=== PATIENT | male | born 1985 | race Caucasian/White ===

== ENCOUNTER 2021-09-09 17:52 | Observation (INO) | payer SELFPAY ==
[~2021-09-09] VITALS: Ht 177.8 cm; Wt 91.0 kg
[2021-09-09] VITALS (15 sets, daily range): BP systolic 124–181; BP diastolic 81–115
--- NOTE | 2021-09-09 18:06 | NUR ---
PT TO ROOM FOR TRIAGE
--- NOTE | 2021-09-09 19:00 | NUR ---
REPORT RECEIVED FROM ZAKIYA MICHAEL, CARE ASSUMED.
[2021-09-09 19:41] LABS: HEMATOCRIT 48.2 % (39.0-50.0); HEMOGLOBIN 16.1 g/dl (14.0-18.0); IMMATURE GRANULOCYTES 0.1 % (0.0-5.0); MEAN CELL VOLUME 92.9 fL CALC (80.0-100.0); MEAN CORPUSCULAR HGB CONC 33.4 g/dL CAL (32.0-36.0); NEUT# 5.13 thou/uL (1.82-7.42); RED BLOOD COUNT 5.19 mill/uL (4.70-6.10); RED CELL DISTRI WIDTH 12.2 % (11.5-15.5)
[2021-09-09 19:42] LABS: URINE BILIRUBIN - DIPSTICK NEGATIVE (NEGATIVE); URINE BLOOD DIPSTICK NEGATIVE (NEGATIVE); URINE COLOR YELLOW; URINE GLUCOSE - DIPSTICK NEGATIVE (NEGATIVE); URINE KETONE NEGATIVE (NEGATIVE); URINE LEUK ESTERASE NEGATIVE (NEGATIVE); URINE PROTEIN - DIPSTICK NEGATIVE (NEG-TRACE); URINE SPECIFIC GRAVITY >=1.030; URINE UROBILINOGEN - DIPSTICK 0.2 E.U./dL (0.2)
[2021-09-09 19:45] LABS: URINE NITRITE - DIPSTICK NEGATIVE (Negative)
--- NOTE | 2021-09-09 19:50 | NUR ---
PT MEDICATED FOR PAIN AND NAUSEA, IN ROOM ON MONITOR, WILL CONT TO MONITOR WHILE AWAITING LAB RESULTS.
[2021-09-09 19:56] LABS: ALBUMIN 4.8 g/dL (3.2-5.0); ALKALINE PHOSPHATASE 90 u/l (38-126); ANION GAP 14 (6-22 (CALC)); BILIRUBIN, TOTAL 0.5 mg/dL (0.0-1.4); BUN 14 mg/dL (9-20); BUN/CREATININE RATIO 17 (12-20 (CALC)); CARBON DIOXIDE 24 mmol/l (22-30); CHLORIDE 103 mmol/l (95-108); CREATININE 0.8 mg/dL (0.7-1.3); GFR FOR AFR.AMER. > 60 ML/MIN (>=60 (CALC)); GFR OTHER RACES > 60 ML/MIN (>=60 (CALC)); LIPASE 113 u/l (23-300); POTASSIUM 4.3 mmol/l (3.5-5.1); SGOT/AST 71 u/l (17-59); SODIUM 137 mmol/l (137-146); TOTAL PROTEIN 8.6 g/dL (6.3-8.2)
--- NOTE | 2021-09-09 20:08 | NUR ---
PT IN ROOM ON MONITOR AWAITING CT SCAN, PT PAIN IS DECREASED AND PT IS NOW RESTING QUIETLY.
--- NOTE | 2021-09-09 20:28 | NUR ---
PT TO BE ADMITTED.
--- NOTE | 2021-09-09 21:19 | NUR ---
PT IN ROOM ON MONITOR PENDING ADMISSION, WILL CONT TO MONITOR.
--- NOTE | 2021-09-09 21:22 | NUR ---
PT REPORTS THAT PAIN IS INCREASING AT THIS TIME, CURRENTLY RATED 5/10, PROVIDER NOTIFIED, AWAITING ADMISSION ORDERS.
--- NOTE | 2021-09-09 21:27 | NUR ---
REPORT CALLED TO LOUIE MICHAEL.
--- NOTE | 2021-09-09 21:30 | NUR ---
Admission Note Report Given to: LOUIE MICHAEL Transported by: Wheelchair X Stretcher Transported with: X Nurse Transporter X Patent IV O2 Pillowcase Turner Location: ICU X MS2 PT ADMITTED TO [facility] VIA STRETCHER BY MANUELITO MICHAEL.
[2021-09-10] VITALS (18 sets, daily range): BP systolic 101–136; BP diastolic 61–81
--- NOTE | 2021-09-10 00:26 | NUR ---
PT CAME UP FROM ED, PT STATES PAIN IS STARTING COME BACKAT 10/06, MESSAGED DR SIGALA BECAUSE THERE WAS NO ORDERS IN FOR THE PT, HE SAID PT CAN ONLY HAVE TYLENOL PO Q6 PRN FOR PAIN, AND THEN HE PUT IN OTHER ODERS FOR PT, I GAVE THE MEDS THAT WERE SCHEDULED AND THE TYLENOL AND THEN RECHECKED PT PAIN AN HOUR LATER AND HE SAID PAIN IS STILL THE SAME 10/06, CALLED DR SIGALA BACK AND HE SAID HE CAN ONLY HAVE THE TYLENOL. WILL CONTINUE TO MONITOR PT
[2021-09-10 05:48] LABS: HEMATOCRIT 43.3 % (39.0-50.0); HEMOGLOBIN 14.5 g/dl (14.0-18.0); IMMATURE GRANULOCYTES 0.3 % (0.0-5.0); MEAN CELL VOLUME 92.5 fL CALC (80.0-100.0); MEAN CORPUSCULAR HGB CONC 33.5 g/dL CAL (32.0-36.0); NEUT# 3.47 thou/uL (1.82-7.42); RED BLOOD COUNT 4.68 mill/uL (4.70-6.10); RED CELL DISTRI WIDTH 12.4 % (11.5-15.5)
[2021-09-10 05:59] LABS: ALBUMIN 3.9 g/dL (3.2-5.0); ALKALINE PHOSPHATASE 70 u/l (38-126); ANION GAP 12 (6-22 (CALC)); BILIRUBIN, TOTAL 0.5 mg/dL (0.0-1.4); BUN 11 mg/dL (9-20); BUN/CREATININE RATIO 14 (12-20 (CALC)); CARBON DIOXIDE 25 mmol/l (22-30); CHLORIDE 105 mmol/l (95-108); CREATININE 0.8 mg/dL (0.7-1.3); GFR FOR AFR.AMER. > 60 ML/MIN (>=60 (CALC)); GFR OTHER RACES > 60 ML/MIN (>=60 (CALC)); SGOT/AST 39 u/l (17-59); SODIUM 137 mmol/l (137-146)
[2021-09-10 06:09] LABS: TOTAL PROTEIN 6.7 g/dL (6.3-8.2)
--- NOTE | 2021-09-10 07:00 | NUR ---
pt report recieved from cistern room operator
--- NOTE | 2021-09-10 07:30 | NUR ---
PT RESTING IN LOW FOWLERS POSITION. A/OX3 ASSESSMENT AND VS COMPLETED. HEART RHYTHM NORMAL RESPIRATIONS EVEN AND UNLABORED. BOWEL SOUNDS HYPOACTIVE. IV SITES NOTED TO LAC AND RAC. PT SENT TO OR FOR EGD . CONSENT OBTAINED BY OR NURSES. PT MEDICATIONS ON HOLD UNTIL PT COMES BACK
--- NOTE | 2021-09-10 08:58 | NUR ---
PT RETURNED FROM OR VIA STRECTHER ACCOMPANIED BY NURSE.
--- NOTE | 2021-09-10 12:13 | NUR ---
PT RESTING IN LOW FOWLERS . PT ATE LUNCH. RESTING WITH DENIAL OF ADDITIONAL NEEDS.
--- NOTE | 2021-09-10 15:54 | NUR ---
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 PROVIDER INFORMED. PROVIDER STATED PT MAY LEAVE AMA. PT SIGNED FORM. FAMILY IN ROOM AWARE PT SIGNED AMA. CHARGE NURSE WITNESS. PT IV REMOVED.
--- NOTE | 2021-09-10 15:56 | NUR ---
Patient decides to leave AMA. Multiple attempts made to ecourage patient to remain here for continued treatment. Explained to patient all risks of leaving against medical advice including . Pt verbalized understanding of all risks. Pt also encouraged to return to [facility] at any time, especially if symptoms continue or become worse. Pt verbalized understanding.
[2021-09-10] MEDS ORDERED: LEVOFLOXACIN500MG PO (16:40)
[2021-09-10] MEDS ORDERED: AMOXIL400 MG/52 PO (16:40)
[2021-09-10] MEDS ORDERED: OMEPRAZOLE20 MG PO (16:41)
[2021-09-10] MEDS ORDERED: AMOXICILLIN500 MG PO (16:43)
--- NOTE | 2021-09-13 15:23 | NUR ---
PER MD, PATIENT NOTIFIED OF PATHOLOGY FINDINGS FROM 09/10/21. RECOMMENDED FINISH MEDICATION PRESCRIBED PRIOR TO HOSPITAL DISCHARGE. PATIENT STATED HE IS TAKING MEDICATION PRESCRIBED, FEELING BETTER, AND VOICING NO CONCERNS AT TIME OF CALL. ADVISED PATIENT TO FOLLOW UP WITH PCP FOR CONTINUITY OF CARE. NOTE AND PATHOLOGY REPORT FORWARDED TO PCP.
== END 2021-09-10 15:50 | disposition left against medical advice (07) | DRG 384 ==
LOC: ED 17:52 → ED-I 20:09 → ED 20:19 → MS2 20:20
PROVIDERS: Nurse Practitioner; ADMIT Surgery; ATTEND Surgery
PROC: 0DB48ZX Excision of Esophagogastric Junction, Via Natural or Artificial Opening Endoscopic, Diagnostic (ICD-10-PCS; principal; 2021-09-10)
PROC: 0DB78ZX Excision of Stomach, Pylorus, Via Natural or Artificial Opening Endoscopic, Diagnostic (ICD-10-PCS; 2021-09-10)
DX: K25.9 Gastric ulcer, unspecified as acute or chronic, without hemorrhage or perforation (principal); K44.9 Diaphragmatic hernia without obstruction or gangrene; K29.80 Duodenitis without bleeding; K29.50 Unspecified chronic gastritis without bleeding; B96.81 Helicobacter pylori [H. pylori] as the cause of diseases classified elsewhere; J45.909 Unspecified asthma, uncomplicated; F17.210 Nicotine dependence, cigarettes, uncomplicated; Z20.822 Contact with and (suspected) exposure to COVID-19
CPT/HCPCS: G0378; Q9967; S0164

== ENCOUNTER 2022-03-06 11:02 | Emergency (ER) | payer SELFPAY ==
[~2022-03-06] VITALS: Ht 177.8 cm; Wt 86.4 kg
[~2022-03-06 11:02] MED LIST: AMOXICILLIN500 MG PO; AMOXIL400 MG/52 PO; LEVOFLOXACIN500MG PO; OMEPRAZOLE20 MG PO
[2022-03-06 11:20] VITALS: BP 135/99
[2022-03-06 11:30] VITALS: BP 132/96
[2022-03-06 11:45] VITALS: BP 140/93
[2022-03-06 12:00] VITALS: BP 140/98
[2022-03-06 12:15] VITALS: BP 138/93
[2022-03-06] MEDS ORDERED: FLEXERIL5 M1 PO (12:27)
[2022-03-06 12:31] VITALS: BP 138/93
== END 2022-03-06 12:38 | disposition home or self-care (01) | DRG 556 ==
LOC: ED 11:02
DX: M25.552 Pain in left hip (principal)

== ENCOUNTER 2023-02-18 09:58 | Emergency (ER) | payer SELFPAY ==
[~2023-02-18] VITALS: Ht 177.8 cm; Wt 70.0 kg
[~2023-02-18 09:58] MED LIST changes: +FLEXERIL5 M1 PO
[2023-02-18 10:07] VITALS: BP 147/102
[2023-02-18 10:08] VITALS: BP 155/104
[2023-02-18] MEDS ORDERED: OFLOXACIN0.3 % OS (10:33)
[2023-02-18 10:50] VITALS: BP 155/89
== END 2023-02-18 10:57 | disposition home or self-care (01) | DRG 125 ==
LOC: ED 09:58
DX: T15.02XA Foreign body in cornea, left eye, initial encounter (principal); S00.252A Superficial foreign body of left eyelid and periocular area, initial encounter; W44.9XXA Unspecified foreign body entering into or through a natural orifice, initial encounter

== ENCOUNTER 2023-03-30 18:14 | Emergency (ER) | payer SELFPAY ==
[~2023-03-30] VITALS: Ht 177.8 cm; Wt 86.2 kg
[2023-03-30] VITALS (7 sets, daily range): BP systolic 143–151; BP diastolic 93–99
[~2023-03-30 18:14] MED LIST changes: +MULTI VITAMIN1 TAB PO; +OFLOXACIN0.3 % OS; +PERCOCET 5/325M1 TAB PO; +VENTOLIN HFA108 MCG
[2023-03-30] MEDS ORDERED: OXYCODO-APAP1 TA2 PO (20:25)
[2023-03-30] MEDS ORDERED: NAPROXEN500 MG PO (20:25)
== END 2023-03-30 21:05 | disposition home or self-care (01) | DRG 563 ==
LOC: ED 18:14
PROC: 2W39X1Z Immobilization of Left Upper Extremity using Splint (ICD-10-PCS; principal; 2023-03-30)
DX: S53.402A Unspecified sprain of left elbow, initial encounter (principal); V86.59XA Driver of other special all-terrain or other off-road motor vehicle injured in nontraffic accident, initial encounter